=== PATIENT | male | born 1965 | race Two or more races ===

== ENCOUNTER 2022-10-08 07:39 | Inpatient (IN) | payer SELFPAY ==
[~2022-10-08] VITALS: Ht 180.3 cm; Wt 75.3 kg
[2022-10-08 08:20] LABS: BASOPHILS % 0.5 % (0.0-2.0); EOSINOPHILS % 0.1 % (0.0-5.0); HEMATOCRIT. 47.4 % (42.0-52.0); HEMOGLOBIN. 16.1 g/dL (14.0-18.0); LYMPHOCYTES % 8.4 % (20.0-50.0); MEAN CORPUSCULAR HEMOGLOBIN 31.4 pg (28.0-32.0); MEAN CORPUSCULAR VOLUME 92.5 fL (80.0-94.0); MEAN PLATELET VOLUME 8.9 fl (7.4-10.4); MONOCYTES % 3.6 % (2.0-8.0); NEUTROPHILS % 87.4 % (40.0-76.0); PLATELET 236 x1000/uL (130-400); RED BLOOD CELL COUNT 5.12 mill/uL (4.7-6.1); RED CELL DISTRIBUTION WIDTH 13.6 % (11.6-14.6)
[2022-10-08 08:23] LABS: CHLORIDE 102 mEq/L (98-107)
[2022-10-08] MEDS ORDERED: IOHEXOL-350 100 ML BOTTLE ONE (08:27)
[2022-10-08 08:28] LABS: PROTHROMBIN TIME 10.9 sec (9.6-11.0)
[2022-10-08] MEDS ORDERED: DEXTROSE 50% WATER 50ML SYRINGE IV ONE (08:30)
[2022-10-08 08:38] LABS: CLARITY URINE CLEAR (CLEAR); COLOR URINE YELLOW (YELLOW); KETONES URINE NEGATIVE (NEGATIVE); LEUKOCYTE ESTERASE URINE NEGATIVE (NEGATIVE); NITRITE URINE NEGATIVE (NEGATIVE); OCCULT BLOOD URINE NEGATIVE (NEGATIVE); PROTEIN URINE TRACE (NEGATIVE); SPECIFIC GRAVITY URINE 1.059 (1.005-1.030)
[2022-10-08 08:39] LABS: ETHANOL BLOOD < 10 mg/dL
[2022-10-08 09:07] LABS: *AMPHETAMINES SCREEN URINE NEGATIVE (NEGATIVE); *BARBITURATES SCREEN URINE NEGATIVE (NEGATIVE); *BENZODIAZEPINES SCREEN URINE NEGATIVE (NEGATIVE); *COCAINE SCREEN URINE NEGATIVE (NEGATIVE); CANNABINOID URINE SCREEN PRESUMTIVE POSITIVE (NEGATIVE); METHADONE URINE SCREEN NEGATIVE (NEGATIVE); OPIATES URINE SCREEN NEGATIVE (NEGATIVE); PHENCYCLIDINE URINE SCREEN NEGATIVE (NEGATIVE)
[2022-10-08] MEDS ORDERED: SODIUM CHLORIDE 0.9% 1,000 ML IV ONE (09:45)
[2022-10-08] MEDS ORDERED: ONDANSETRON HCL 4MG/2ML INJ IV ONE (09:45)
[2022-10-08] MEDS ORDERED: ONDANSETRON HCL 4MG/2ML INJ IV NR (11:15)
[2022-10-08] MEDS ORDERED: METOCLOPRAMIDE HCL 10MG/2ML VIAL IV ONE (11:15)
[2022-10-08 12:00] VITALS: BP 133/81
[2022-10-08] MEDS ORDERED: CLONIDINE 0.1MG TABLET PO PRN (12:30)
[2022-10-08] MEDS ORDERED: GUAIFENESIN 200MG/10ML SUGAR FREE UDC PO PRN (12:30)
[2022-10-08] MEDS ORDERED: MAGNESIUM/ALUMINUM HYDROXIDE/SIMETHICONE 30ML UDC PO PRN (12:30)
[2022-10-08] MEDS ORDERED: HYDROCODONE/ACETAMINOPHEN 5/325MG TABLET PO PRN (12:30)
[2022-10-08] MEDS ORDERED: IPRATROPIUM/ALBUTEROL 0.5-3(2.5)MG/3ML NEB HHN PRN (12:30)
[2022-10-08] MEDS ORDERED: ONDANSETRON HCL 4MG/2ML INJ IV PRN (12:30)
[2022-10-08] MEDS ORDERED: DOCUSATE SODIUM 100MG CAPSULE PO PRN (12:30)
[2022-10-08] MEDS ORDERED: ACETAMINOPHEN 325MG TABLET PO PRN ×2 (12:30)
[2022-10-08] MEDS ORDERED: ASPIRIN 81MG EC TABLET PO SCH (13:30)
[2022-10-08] MEDS ORDERED: ENOXAPARIN 40MG/0.4ML SYR SUBCUT SCH (13:30)
[2022-10-08] MEDS ORDERED: AMLODIPINE 5MG TABLET PO SCH (13:45)
[2022-10-08] MEDS ORDERED: DEXTROSE 50% WATER 50ML SYRINGE IV PRN (14:15)
[2022-10-08] MEDS ORDERED: CEFTRIAXONE 1GM PREMIX 50 ML IV SCH (14:30)
[2022-10-08 16:00] VITALS: BP 170/108
[2022-10-08] MEDS ORDERED: NALOXONE HCL 0.4MG/ML VIAL IV PRN (16:00)
[2022-10-08] MEDS: SODIUM CHLORIDE 0.9% 1,000 ML IV SCH (16:05)
[2022-10-08] MEDS: CEFTRIAXONE 1,000 MG in DEXTROSE 5% WATER 50 ML IV SCH (16:08)
[2022-10-08 16:28] LABS: HEMATOCRIT 47.4 % (42.0-52.0); HEMOGLOBIN 16.3 g/dL (14.0-18.0)
[2022-10-08 16:33] LABS: TOTAL IRON BINDING CAPACITY 274 ug/dL (250-450)
[2022-10-08 16:38] LABS: PHOSPHORUS 3.2 mg/dL (2.5-4.9)
[2022-10-08 17:08] LABS: FOLIC ACID (FOLATE) SERUM 13.4 ng/mL (>5.38)
[2022-10-08] MEDS: PANTOPRAZOLE SODIUM 40 MG/VIAL IV SCH (17:18)
[2022-10-08] MEDS: BLOOD SUGAR DIAGNOSTIC STRIP TEST SCH ×2 (17:19→21:00)
[2022-10-08 20:00] VITALS: BP 166/104
[2022-10-08] MEDS ORDERED: ATORVASTATIN CALCIUM 40MG TABLET PO SCH (21:00)
[2022-10-08 21:07] LABS: HEMATOCRIT 49.2 % (42.0-52.0); HEMOGLOBIN 16.7 g/dL (14.0-18.0)
[2022-10-09] VITALS: BP 148/99
[2022-10-09] MEDS: PANTOPRAZOLE SODIUM 40 MG/VIAL IV SCH ×2 (00:19→09:19)
[2022-10-09] MEDS: SODIUM CHLORIDE 0.9% 1,000 ML IV SCH (00:20)
[2022-10-09 00:38] LABS: HEMATOCRIT 45.8 % (42.0-52.0); HEMOGLOBIN 15.6 g/dL (14.0-18.0)
[2022-10-09 04:00] VITALS: BP 148/66
[2022-10-09] MEDS: BLOOD SUGAR DIAGNOSTIC STRIP TEST SCH ×3 (06:24→17:10)
[2022-10-09 07:31] LABS: BASOPHILS % 0.7 % (0.0-2.0); EOSINOPHILS % 0.6 % (0.0-5.0); HEMATOCRIT. 46.3 % (42.0-52.0); HEMOGLOBIN. 15.6 g/dL (14.0-18.0); LYMPHOCYTES % 17.4 % (20.0-50.0); MEAN CORPUSCULAR HEMOGLOBIN 31.7 pg (28.0-32.0); MEAN PLATELET VOLUME 9.3 fl (7.4-10.4); MONOCYTES % 8.4 % (2.0-8.0); NEUTROPHILS % 72.9 % (40.0-76.0); PLATELET 209 x1000/uL (130-400); RED BLOOD CELL COUNT 4.93 mill/uL (4.7-6.1); RED CELL DISTRIBUTION WIDTH 13.8 % (11.6-14.6)
[2022-10-09 07:42] LABS: CHLORIDE 106 mEq/L (98-107)
[2022-10-09 07:54] LABS: PROTHROMBIN TIME 10.9 sec (9.6-11.0)
[2022-10-09 07:56] LABS: HDL CHOLESTEROL 38 mg/dL (40-59); LDL CHOLESTEROL 148 mg/dL (5-100)
[2022-10-09 08:00] VITALS: BP 142/86
[2022-10-09] MEDS ORDERED: ASPIRIN 81MG EC TABLET PO SCH (09:00)
[2022-10-09] MEDS ORDERED: PANTOPRAZOLE SODIUM 40 MG/VIAL IV SCH (09:00)
[2022-10-09] MEDS ORDERED: AMLODIPINE 5MG TABLET PO SCH (09:00)
[2022-10-09 12:00] VITALS: BP 126/87
[2022-10-09] MEDS: CEFTRIAXONE 1,000 MG in DEXTROSE 5% WATER 50 ML IV SCH (14:58)
[2022-10-09 16:00] VITALS: BP 133/83
[2022-10-09] MEDS ORDERED: CYANOCOBALAMIN 1000MCG/ML VIAL SUBCUT SCH (17:00)
[2022-10-09] MEDS ORDERED: ASCORBIC ACID 500 MG TABLET PO SCH (17:00)
[2022-10-09] MEDS ORDERED: FERROUS SULFATE 325MG TABLET PO SCH (17:00)
[2022-10-09 17:14] LABS: HEMATOCRIT 45.8 % (42.0-52.0); HEMOGLOBIN 15.3 g/dL (14.0-18.0)
[2022-10-09 18:55] VITALS: BP 133/83
== END 2022-10-09 19:44 | disposition home or self-care (01) | DRG 47 ==
LOC: ER 07:39 → 8WST 10:06
PROVIDERS: ADMIT Hospitalist; ATTEND Hospitalist
DX: G45.9 Transient cerebral ischemic attack, unspecified (principal); K92.2 Gastrointestinal hemorrhage, unspecified; D72.829 Elevated white blood cell count, unspecified; Z20.822 Contact with and (suspected) exposure to COVID-19; E16.2 Hypoglycemia, unspecified; K21.9 Gastro-esophageal reflux disease without esophagitis; Z79.82 Long term (current) use of aspirin; Z87.891 Personal history of nicotine dependence
CPT/HCPCS: 36415; 70496; 70498; 71045; 76700; 80053; 80061; 80305; 80320; 81003; 82140; 82607; 82728; 82746; 82962; 83036; 83540; 83550; 83605; 83735; 83880; 84100; 84145; 84206; 84439; 84443; 84484; 84681; 85014; 85018; 85025; 85044; 86337; 87426; 93005; 93306; 93970; 99291; C9113; J0696; J2405; J2765; J7030; J7060; Q9967; G0480